=== PATIENT | female | born 1985 | race African-American/Black ===

== ENCOUNTER 2016-09-16 09:27 | Emergency (ER) | payer OTHER ==
[~2016-09-16 09:27] MED LIST: ADVAIR 100-501 EACH INH; CYCLOBENZAPRINE10 M1 PO; IBUPROFEN600 M1 PO; MEDROL4 M2 PO; MOBIC15 M1 PO; PERCOCET 5-3251 EACH PO; PROAIR HFA8.5 GM INH
--- NOTE | 2016-09-16 09:41 | ED DYSPNEA/ASTHMA COMPLAINT ---
History of Present Illness General Chief Complaint: Wheezing/Asthma Stated Complaint: DIFF BREATHING, ASTHMA Source: patient, old records Exam Limitations: no limitations Vital Signs & Intake/Output Vital Signs & Intake/Output Vital Signs Date Time Temp Pulse Resp B/P B/P Pulse O2 O2 Flow FiO2 Mean Ox Delivery Rate 09/16 0950 97 09/16 0940 Room Air 09/16 0934 96.7 102 26 112/73 94 Room Air Allergies Coded Allergies: shellfish derived (THROAT TIGHT "CAN'T BREATH" 03/06/16) Reconcile Medications Albuterol Sulfate (Proair Hfa) 90 MCG HFA.AER.AD 2 PUF INH Q4-6 PRN PRN wheezing please include spacer Fluticasone-Salmeterol (Advair 100-50 Diskus) 100 MCG-50 MCG/DOSE BLST.W.DEV 1 PUF INH BID asthma Norgestimate-Ethinyl Estradiol (Sprintec 28 Day Tablet) 0.25 MG-35 MCG TABLET 1 TAB PO DAILY BC (Reported) Triage Note: PER PT DIFF BREATHING SINCE AM, AUDIBLE WHEEZES NOTED. PER PT USING PUMP WITHOUT EFFECT. LMP 09/04/16 Triage Nurses Notes Reviewed? yes : No Patient currently breastfeeds: No HPI: Patient presents with a nonproductive cough, chills and wheezing for the past 3 days. Patient states that he started with her allergies but her symptoms worsen. Patient has been using her inhaler multiple times. She has slight dyspnea on exertion but no orthopnea. There is no chest pain or chest tightness. Similar symptoms in the past. Last menstrual period was 09/04/2016 and patient states that there is no chance of her being . Past History Travel History Traveled to [place] past 21 day No Medical History Any Pertinent Medical History? see below for history Neurological: NONE EENT: NONE Cardiovascular: GESTATIONAL HTN Respiratory: asthma Gastrointestinal: NONE Hepatic: NONE Renal: NONE Musculoskeletal: NONE Psychiatric: NONE Endocrine: NONE Blood Disorders: NONE Cancer(s): NONE Surgical History Surgical History: non-contributory Psychosocial History What is your primary language Czech Tobacco Use: Never used ETOH Use: occasional use Illicit Drug Use: denies illicit drug use Family History Hx Contributory? No Review of Systems Review of Systems Constitutional: Reports: see HPI, chills. EENTM: Reports: no symptoms. Respiratory: Reports: see HPI, cough, short of breath, wheezing. Cardiovascular: Reports: no symptoms. GI: Reports: no symptoms. Genitourinary: Reports: no symptoms. Musculoskeletal: Reports: no symptoms. Skin: Reports: no symptoms. Neurological/Psychological: Reports: no symptoms. Hematologic/Endocrine: Reports: no symptoms. Immunologic/Allergic: Reports: no symptoms. All Other Systems: Reviewed and Negative Physical Exam Physical Exam General Appearance: well developed/nourished, alert, awake, anxious, mild distress Head: atraumatic Eyes: Bilateral: PERRL, EOMI. Ears, Nose, Throat: normal pharynx, normal ENT inspection, hearing grossly normal Neck: normal inspection, supple, full range of motion Respiratory: decreased breath sounds, wheezing, respiratory distress Cardiovascular: regular rate/rhythm, normal peripheral pulses Gastrointestinal: normal bowel sounds, soft, non-tender, no organomegaly Extremities: normal inspection, normal capillary refill, normal range of motion, no edema Neurologic/Psych: no motor/sensory deficits, awake, alert, oriented x 3, normal gait, normal mood/affect Skin: intact, normal color, warm/dry Lymphatic: no anterior cervical geovanny Core Measures ACS in differential dx? No Severe Sepsis Present: No Septic Shock Present: No Progress Differential Diagnosis: asthma, bronchitis, pneumonia Plan of Care: Current Medications Sig/Lynn Start time Last Medication Dose Stop Time Status Admin Albuterol Sulfate 3 ML ONCE ONE 09/16 1130 UNVr (Proventil) 09/16 1131 Diagnostic Imaging: Viewed by Me: Radiology Read. Discussed w/RAD: Radiology Read. CXR Impression: PATIENT: JAGRUTI CARR PRESENT AGE: 30 PATIENT ACCOUNT NO: [id number] : 84 LOCATION: [facility] ORDERING PHYSICIAN: LONNIE NY MD SERVICE DATE: 09/16/16 EXAM TYPE: RAD - XRY-CHEST XRAY, PA AND LATERAL EXAMINATION: XR CHEST CLINICAL INFORMATION: Coughing and wheezing. COMPARISON: None TECHNIQUE: 2 views of the chest were obtained. FINDINGS: Lungs are well expanded and clear. Trachea is midline position. No pneumothorax or pleural effusion. Cardiac silhouette is normal in size. The hilar contours are normal. The bones are unremarkable. IMPRESSION: No acute cardiopulmonary abnormalities. DICTATED BY: KARLEE TRAN MD DATE/TIME DICTATED:09/16/161099 RECONSTRUCTIVE DENTIST:BRUCE DATE/TIME TRANSCRIBED: / 1099 CONFIDENTIAL, DO NOT COPY WITHOUT APPROPRIATE AUTHORIZATION. < Electronically signed in Other Vendor System> SIGNED BY: KARLEE TRAN MD 09/16/16 1107 Initial ED EKG: none Departure Departure Disposition: HOME OR SELF CARE Condition: Stable Clinical Impression Primary Impression: Asthma exacerbation Referrals: PATIENT HAS NO PRIMARY CARE DR (PCP/Family) Additional Instructions: Continue prednisone as prescribed. Return if symptoms worsen or for any concerns. Departure Forms: Customer Survey General Discharge Information Critical Care Note Critical Care Note Critical Care Time: non-applicable
--- NOTE | 2016-09-16 11:04 | RADIOLOGY REPORT ---
EXAMINATION: XR CHEST CLINICAL INFORMATION: Coughing and wheezing. COMPARISON: None TECHNIQUE: 2 views of the chest were obtained. FINDINGS: Lungs are well expanded and clear. Trachea is midline position. No pneumothorax or pleural effusion. Cardiac silhouette is normal in size. The hilar contours are normal. The bones are unremarkable. IMPRESSION: No acute cardiopulmonary abnormalities.
[2016-09-16] MEDS ORDERED: SPRINTEC 28 DA1 EACH PO (11:14)
[2016-09-16 11:46] VITALS: BP 118/80
[2016-09-16] MEDS ORDERED: ZITHROMAX250 M2 PO (15:15)
[2016-09-16] MEDS ORDERED: NASONEX17 GM NASB (15:15)
[2016-09-16] MEDS ORDERED: IPRAT-ALBUT 0.5-3 ML INH (15:15)
== END 2016-09-16 11:47 ==
LOC: ERH 09:27
DX: J45.901 Unspecified asthma with (acute) exacerbation (principal)
CPT/HCPCS: 1263

== ENCOUNTER 2016-09-16 13:46 | Emergency (ER) | payer OTHER ==
[~2016-09-16] VITALS: Ht 172.7 cm; Wt 119.7 kg
[~2016-09-16 13:46] MED LIST changes: +SPRINTEC 28 DA1 EACH PO
--- NOTE | 2016-09-16 14:11 | ED DYSPNEA/ASTHMA COMPLAINT ---
History of Present Illness General Chief Complaint: Wheezing/Asthma Stated Complaint: ASTHMA Source: patient, old records Exam Limitations: no limitations Vital Signs & Intake/Output Vital Signs & Intake/Output Vital Signs Date Time Temp Pulse Resp B/P B/P Pulse O2 O2 Flow FiO2 Mean Ox Delivery Rate 09/16 1524 95 Room Air 09/16 1524 99.0 118 16 122/74 96 Room Air 09/16 1351 99.3 119 24 152/88 95 Room Air Allergies Coded Allergies: shellfish derived (THROAT TIGHT "CAN'T BREATH" 03/06/16) Reconcile Medications Albuterol Sulfate (Proair Hfa) 90 MCG HFA.AER.AD 2 PUF INH Q4-6 PRN PRN wheezing please include spacer Azithromycin (Zithromax) 250 MG TABLET 1 DP PO AD bronchitis 2 the first day followed by 1 for days 2-5 Fluticasone-Salmeterol (Advair 100-50 Diskus) 100 MCG-50 MCG/DOSE BLST.W.DEV 1 PUF INH BID asthma Ipratropium/Albuterol Sulfate (Iprat-Albut 0.5-3(2.5) MG/3 Ml) 0.5 MG-3 MG (2.5 MG BASE)/3 ML AMPUL.NEB 3 ML INH Q6HR PRN WHEEZING Mometasone Furoate (Nasonex) 50 MCG SPRAY.PUMP 2 SPRAY NASB DAILY bronchitis Norgestimate-Ethinyl Estradiol (Sprintec 28 Day Tablet) 0.25 MG-35 MCG TABLET 1 TAB PO DAILY BC (Reported) Triage Note: TRIAGE: PATIENT TO ER FROM HOME REPORTS SEEN HERE 2 HOURS AGO W/ SAME. HX ASTHMA, NOTED W/ AUDIBLE WHEEZING IN TRIAGE. REPORTS USING NEBULIZER/ PREDNISONE AND RESUE INHALER W/O RELIEF. 02:95%RA. Triage Nurses Notes Reviewed? yes Onset: Gradual Duration: week(s): (1), constant, getting worse Timing: recent history Severity: mild, moderate Activities at Onset: none Prior Episodes/Possible Cause: occasional episodes Modifying Factors: Worsens With: other (cough). Associated Symptoms: cough : No Patient currently breastfeeds: No HPI: This is a 30-year-old female presents to ER with history of asthma. She was seen earlier today for the same. The patient states that she has had seasonal allergies have been getting worse over the past 1 week causing an exacerbation of her asthma. She's been using her DuoNeb rescue inhalers without improvement. She states that she had old prednisone at home and took 40 mg today. She was seen in the ER earlier and states she is feeling better after her treatments here however after getting home the symptoms worsens. Patient reports to not productive cough. No fever no chills no pain with inspiration or chest pain abdominal pain nausea vomiting no abdominal pain no recent immobility or travel no leg swelling. (DRE BAH) Past History Travel History Traveled to [place] past 21 day No Medical History Any Pertinent Medical History? see below for history Neurological: NONE EENT: NONE Cardiovascular: GESTATIONAL HTN Respiratory: asthma Gastrointestinal: NONE Hepatic: NONE Renal: NONE Musculoskeletal: NONE Psychiatric: NONE Endocrine: NONE Blood Disorders: NONE Cancer(s): NONE Surgical History Surgical History: non-contributory Psychosocial History What is your primary language Danish Tobacco Use: Refused to answer Family History Hx Contributory? No (DRE BAH) Review of Systems Review of Systems Constitutional: Reports: see HPI. All Other Systems: Reviewed and Negative Comments Review of systems: See HPI, All other systems negative. Constitutional, no chills no fever, no malaise HEENT: No visual changes no sore throat congestion Cardiovascular: No chest pain , no palpitation Skin: no rashes, no change in skin Respiratory: dyspnea cough no sputum GI: No nausea no vomiting, no diarrhea, : No dysuria Muscle skeletal: No joint pain, no joint swelling, no back pain, no neck pain, Neurologic: No numbnessno headache Psych: No stress Heme/endocrine: No bruising no bleeding Immunology: No lymphadenopathy (DRE BAH) Physical Exam Physical Exam General Appearance: well developed/nourished, alert, awake Respiratory: wheezing Comments: Well-developed well-nourished patient in no apparent distress. Head/Face: Atraumatic, no maxillary/frontal sinus tenderness, no facial swelling Eyes: PERRL, EOMI, no conjunctival injection. Ear:External auditory canal and Tympanic membranes clear, no erythema, no FB. Nose: atraumatic.Normal inspection: No bleeding, no septal hematoma Throat: Moist mucous membranes.Pharynx normal. No pharyngeal erythema/exudate seen. No stridor/drooling or assymetry. No swelling or edema. Neck: Supple, no lymphadenopathy, FROM Back: FROM Cardiovascular: Regular rate and rhythms no murmurs rubs or gallops, Respiratory: Chest nontender.There were no bony deformities, no asymmetry. No respiratory distress. Patient speaking in full complete sentences. Breath sounds clear to auscultation bilaterally: NO W/R/R Extremities: full range of motion Neuro: awake, alert, and oriented to person, place and time. There were no obvious focal neurologic abnormalities. Skin: Warm & dry;No appreciable rash on exposed skin Psych: Mood affect normal, normal memory normal judgment. Core Measures ACS in differential dx? No Severe Sepsis Present: No Septic Shock Present: No (CONNOR SETHI,DRE) Progress Differential Diagnosis: asthma, AMI, bronchitis, costochondritis, COPD, musculoskeletal pain, pericarditis, pneumonia Plan of Care: Orders Procedure Date/time Status CBC WITHOUT DIFFERENTIAL 09/16 141 Complete BASIC METABOLIC PANEL 09/16 141 Complete Laboratory Tests 09/16/16 1411: Anion Gap 15, Estimated GFR > 60, BUN/Creatinine Ratio 6.7 L, Glucose 206 H, Calcium 9.1, CBC w Diff MAN DIFF ORDERED, RBC 5.08, MCV 74.9 L, MCH 23.9 L, RDW 15.4 H, MPV 9.0, Gran % 97.1 H, Lymphocytes % 2.0 L, Monocytes % 0.8 L, Eosinophils % 0.1, Basophils % 0 L, Absolute Granulocytes 7.8 H, Absolute Lymphocytes 0.2 L, Absolute Monocytes 0.1 L, Absolute Eosinophils 0, Absolute Basophils 0, Platelet Estimate , Poikilocytosis 2+, Anisocytosis 1+, Ovalocytes 1+, PUBS MCHC 31.9 L Old records reviewed patient medicated DuoNeb soluMedrol IV Case discussed with Dr. Ny who evaluated the patient earlier agrees with plan 1510 pt feeling improved with treatment, no wheezing on exam, lungs cta. I discussed with the patient at length all of their results. I had an extensive conversation regarding need for close follow up with their primary care physician this week as well as return precautions. I answered all of their questions, they feel comfortable with the plan and follow-up care. I discussed the medications that they will receive with the patient. I gave them signs and symptoms that could indicate an adverse reaction. I have advised them to limit their activities until they can see how they respond to the medication. xray reviewed from earlier today: PATIENT: JAGRUTI CARR PRESENT AGE: 30 PATIENT ACCOUNT NO: [id number] : 84 LOCATION: [facility] ORDERING PHYSICIAN: LONNIE NY MD SERVICE DATE: 09/16/16 EXAM TYPE: RAD - XRY-CHEST XRAY, PA AND LATERAL EXAMINATION: XR CHEST CLINICAL INFORMATION: Coughing and wheezing. COMPARISON: None TECHNIQUE: 2 views of the chest were obtained. FINDINGS: Lungs are well expanded and clear. Trachea is midline position. No pneumothorax or pleural effusion. Cardiac silhouette is normal in size. The hilar contours are normal. The bones are unremarkable. IMPRESSION: No acute cardiopulmonary abnormalities. DICTATED BY: KARLEE TRAN MD DATE/TIME DICTATED:09/16/161099 ADOPTION COORDINATOR:BRUCE DATE/TIME TRANSCRIBED:09/16/161099 (DRE ABH) Initial ED EKG: none (DRE BAH) Departure Departure Time of Disposition: 1511 Disposition: HOME OR SELF CARE Condition: Stable Clinical Impression Primary Impression: Asthma exacerbation Secondary Impressions: URI (upper respiratory infection) Referrals: PATIENT HAS NO PRIMARY CARE DR (PCP/Family) Additional Instructions: continue with your prednisone taper as directed, zpak, nasonex as discussed. duoneb as needed. these were sent to [facility]. follow up with your pmd this week, return with any concerns Departure Forms: Customer Survey General Discharge Information Prescriptions: Current Visit Scripts Azithromycin (Zithromax) 1 DP PO AD #6 TAB 2 the first day followed by 1 for days 2-5 Mometasone Furoate (Nasonex) 2 SPRAY NASB DAILY #1 INHAL Ipratropium/Albuterol Sulfate (Iprat-Albut 0.5-3(2.5) MG/3 Ml) 3 ML INH Q6HR PRN WHEEZING #1 BOX (DRE BAH) PA/BUSINESS FUNCTIONAL ANALYST Co-Sign Statement Statement: ED Attending supervision documentation- [] I saw and evaluated the patient. I have also reviewed all the pertinent lab results and diagnostic results. I agree with the findings and the plan of care as documented in the PA's/BUSINESS FUNCTIONAL ANALYST's documentation. [X] I have reviewed the ED Record and agree with the PA's/BUSINESS FUNCTIONAL ANALYST's documentation. [] Additions or exceptions (if any) to the PAs/BUSINESS FUNCTIONAL ANALYST's note and plan are summarized below: [] (YANELY BURNS,LONNIE Francois) Critical Care Note Critical Care Note Critical Care Time: non-applicable (CONNOR SETHI,DRE)
[2016-09-16 14:19] LABS: ABSOLUTE BASOPHIL COUNT 0 /CUMM (0.0-0.2); ABSOLUTE EOSINOPHIL COUNT 0 /CUMM (0.0-0.7); ABSOLUTE GRANULOCYTE CT 7.8 /CUMM (1.4-6.5); ABSOLUTE LYMPH COUNT 0.2 /CUMM (1.2-3.4); ABSOLUTE MONOCYTE COUNT 0.1 /CUMM (0.10-0.60); BASOPHIL % 0 % (0.0-2.0); EOSINOPHIL % 0.1 % (0-5); GRANULOCYTE % 97.1 % (42.2-75.2); HEMATOCRIT 38.1 % (37-47); MEAN CORPUSCULAR HGB 23.9 PG (27.0-31.0); MEAN CORPUSCULAR HGB CONC 31.9 G/DL (33.0-37.0); MEAN CORPUSCULAR VOLUME 74.9 FL (81.0-99.0); PLATELET COUNT 290 /CUMM (130-400); RBC DISTRIBUTION WIDTH 15.4 % (11.5-14.5); RED BLOOD CELL CT 5.08 /CUMM (4.20-5.40)
[2016-09-16] MEDS ORDERED: NASONEX17 GM NASB (15:15)
[2016-09-16] MEDS ORDERED: ZITHROMAX250 M2 PO (15:15)
[2016-09-16] MEDS ORDERED: IPRAT-ALBUT 0.5-3 ML INH (15:15)
[2016-09-16 15:24] VITALS: BP 122/74
== END 2016-09-16 15:25 ==
LOC: ERH 13:46
PROVIDERS: Physician Assistant Medical
DX: J45.901 Unspecified asthma with (acute) exacerbation (principal); J06.9 Acute upper respiratory infection, unspecified
CPT/HCPCS: 1263; 96374; J0456; J2930